=== PATIENT | female | born 1970 | race Caucasian/White ===

== ENCOUNTER → 2022-01-20 | Outpatient (CLI) | payer OTHER | LOC: EMI 09:00 | DX: G35 Multiple sclerosis (principal); M50.321 Other cervical disc degeneration at C4-C5 level | CPT/HCPCS: 70553; 72156; A9577 ==

== ENCOUNTER → 2022-01-21 | Outpatient (CLI) | payer OTHER | LOC: HEART CORB 08:38 | DX: R07.2 Precordial pain (principal); R06.02 Shortness of breath; I10 Essential (primary) hypertension; E78.5 Hyperlipidemia, unspecified; E11.9 Type 2 diabetes mellitus without complications; J44.9 Chronic obstructive pulmonary disease, unspecified; K58.9 Irritable bowel syndrome, unspecified; G35 Multiple sclerosis; Z88.0 Allergy status to penicillin; Z88.8 Allergy status to other drugs, medicaments and biological substances; Z87.891 Personal history of nicotine dependence | CPT/HCPCS: 78452; A9502; J2785 ==

== ENCOUNTER → 2022-05-03 | Outpatient (CLI) | payer OTHER ==
[2022-05-03 09:14] LABS: GLUCOSE,CSF 129 mg/dL (50-80); TOTAL PROTEIN,CSF 35 mg/dL (20-45)
[2022-05-03 09:33] LABS: WBC (AUTOMATED 2 10^3 (0-5)
[2022-05-03 09:34] LABS: WBC (AUTOMATED 1 10^3 (0-5)
[2022-05-04 13:09] LABS: CSF IGG INDEX 0.6 (0.0-0.7); CSF/SERUM ALB. INDEX 4 (0-8); IMMUNOGLOBULIN G, QN, SERUM 818 mg/dL (586-1602)
== END ==
LOC: RAD 06:15
PROVIDERS: Psychiatry & Neurology Neurology
DX: G35 Multiple sclerosis (principal)
CPT/HCPCS: 82040; 82784; 82945; 83873; 83916; 84157; 87070; 87205; 89051

== ENCOUNTER 2022-05-07 17:59 | Emergency (ER) | payer OTHER ==
[2022-05-07 19:27] LABS: HEMOGLOBIN 13.1 gm/dl (12.3-15.3); RED BLOOD COUNT 4.27 M/UL (4.00-5.10); WHITE BLOOD COUNT 8.7 K/UL (4.5-11.0)
[2022-05-07 19:54] LABS: BUN/CREATININE RATIO 34 (0-10)
[2022-05-08] MEDS ORDERED: STIOLTO RESPIMAT4 GM INH (16:19)
[2022-05-08] MEDS ORDERED: VITAMIN D31250 MCG PO (16:19)
[2022-05-08] MEDS ORDERED: LIPITOR20 MG PO (16:20)
[2022-05-08] MEDS ORDERED: GLIMEPIRIDE4 MG PO (16:20)
[2022-05-08] MEDS ORDERED: JARDIANCE25 MG PO (16:20)
[2022-05-08] MEDS ORDERED: CYCLOBENZAPRINE10 MG PO (16:20)
[2022-05-08] MEDS ORDERED: OXYBUTYNIN CHLOR5 MG PO (16:20)
[2022-05-08] MEDS ORDERED: FLONASE ALLER15.8 ML (16:21)
[2022-05-08] MEDS ORDERED: MELOXICAM15 MG PO (16:21)
[2022-05-08] MEDS ORDERED: LANTUS SOL100 UNIT/1 SQ (16:21)
[2022-05-08] MEDS ORDERED: RYBELSUS7 MG PO (16:21)
[2022-05-08] MEDS ORDERED: PREGABALIN150 MG PO (16:21)
[2022-05-08] MEDS ORDERED: DIOVAN160 MG PO (16:22)
[2022-05-08] MEDS ORDERED: PROAIR HFA8.5 GM INH (16:22)
[2022-05-08] MEDS ORDERED: SERTRALINE HCL100 MG PO (16:22)
[2022-05-08] MEDS ORDERED: AMITRIPTYLINE H10 MG PO (16:23)
[2022-05-08] MEDS ORDERED: KENALOG CREAM 015 GM TOP (16:23)
[2022-05-08] MEDS ORDERED: DICYCLOMINE HCL10 MG PO (16:23)
[2022-05-08] MEDS ORDERED: OMEPRAZOLE40 MG PO (16:23)
== END 2022-05-08 16:21 | disposition home or self-care (01) ==
LOC: ER1 17:59
PROVIDERS: Physician Assistant
DX: M54.50 Low back pain, unspecified (principal); G89.29 Other chronic pain; K62.89 Other specified diseases of anus and rectum; R32 Unspecified urinary incontinence; E11.9 Type 2 diabetes mellitus without complications; J44.9 Chronic obstructive pulmonary disease, unspecified; I10 Essential (primary) hypertension; Z91.89 Other specified personal risk factors, not elsewhere classified
CPT/HCPCS: 70450; 71045; 72132; 72158; 80053; 81001; 82550; 82553; 82962; 83605; 84484; 85025; 87086; 93005; 99284; A9577; Q9967

== ENCOUNTER → 2022-05-27 | Outpatient (CLI) | payer OTHER ==
[~2022-05-27] MED LIST: AMITRIPTYLINE H10 MG PO; CYCLOBENZAPRINE10 MG PO; DICYCLOMINE HCL10 MG PO; DIOVAN160 MG PO; FLONASE ALLER15.8 ML; GLIMEPIRIDE4 MG PO; JARDIANCE25 MG PO; KENALOG CREAM 015 GM TOP; LANTUS SOL100 UNIT/1 SQ; LIPITOR20 MG PO; MELOXICAM15 MG PO; OMEPRAZOLE40 MG PO; OXYBUTYNIN CHLOR5 MG PO; PREGABALIN150 MG PO; PROAIR HFA8.5 GM INH; RYBELSUS7 MG PO; SERTRALINE HCL100 MG PO; STIOLTO RESPIMAT4 GM INH; VITAMIN D31250 MCG PO
== END ==
LOC: MRI 15:07
DX: G35 Multiple sclerosis (principal)
CPT/HCPCS: 72157; A9577